=== PATIENT | female | born 1965 | race Caucasian/White ===

== ENCOUNTER 2021-02-28 12:06 | Outpatient (REF) | payer OTHER, SELFPAY ==
--- NOTE | ~2021-02-28 | MM_ITS ---
EXAMINATION: MM SCREENING DIGITAL BREAST TOMOSYNTHESIS, BILATERAL CLINICAL INFORMATION: Screening. Asymptomatic. The lifetime risk of breast cancer based on the Tyrer-Cuzick Model is 9%. COMPARISON: Outside mammography: 12/13/2019, 07/22/2018, 07/15/2018, 06/06/2014 ([facility]). TECHNIQUE: Digital mammography is performed in craniocaudal and mediolateral oblique views along with computer-aided detection (CAD). Digital breast tomosynthesis is performed in implant-displaced craniocaudal and implant-displaced mediolateral oblique views along with computer-aided detection (CAD). Synthesized 2D images are generated from the tomosynthesis. FINDINGS: The breasts are heterogeneously dense, which may obscure small masses (ACR BI-RADS breast composition Category c). There are bilateral implants. The implant contours are smooth and similar to outside exams. Breast parenchymal pattern is similar to prior studies there is a biopsy clip marker adjacent to stable nodule central 11:30 o'clock right breast. Neither breast shows interval mass or architectural abnormality. No abnormal calcifications. The axilla and skin contours are unremarkable. MM/MM tomosynthesis screen imp BI IMPRESSION: No mammographic evidence of malignancy. ASSESSMENT: BI-RADS 2: Benign RECOMMENDATION: Routine annual mammography screening. This patient's information was entered into a reminder system with a target due date for their next mammogram.
== END 2021-02-28 12:07 | disposition home or self-care (01) ==
LOC: HO.MAMMO 12:06
PROVIDERS: Visit Provider Internal Medicine
DX: Z12.31 Encounter for screening mammogram for malignant neoplasm of breast (principal)
CPT/HCPCS: 77063; 77067

== ENCOUNTER 2024-03-20 16:08 | Outpatient (REF) | payer OTHER, SELFPAY ==
[2024-03-20 18:10] LABS: MANUAL DIFF FLAG NO
[2024-03-20 18:30] LABS: Basophils Percent Auto 0.4 % (0-2); Eosinophils Absolute Auto 0.2 X10*3/uL (0.0-0.4); Eosinophils Percent Auto 1.8 % (0-4); Hematocrit 41.5 % (37.0-47.0); Hemoglobin 13.8 g/dl (12.0-16.0); Imm Gran Abs Auto 0.03 X10*3/uL (0.00-0.03); Imm Gran Pct Auto 0.3 % (0.0-0.4); Lymphocytes Absolute Auto 3.2 X10*3/uL (1.2-4.9); Lymphocytes Percent Auto 35.9 % (20-40); Mean Corpuscular HGB Conc 33.3 g/dl (31.0-35.0); Mean Corpuscular Hemoglobin 30.8 pg (27.0-33.0); Mean Corpuscular Volume 92.6 fL (80.0-98.0); Mean Platelet Volume 10.2 fL (9.4-12.3); Monocytes Absolute Auto 0.5 X10*3/uL (0.1-1.2); Neutrophils Percent Auto 55.6 % (45-73); Platelet Count 339 X10*3/uL (160-400); Red Blood Count 4.48 X10*6/uL (4.20-5.50); Red Cell Distribution Width 12.2 % (11.0-16.0)
[2024-03-20 18:54] LABS: Alanine Aminotransferase 28 U/L (0-31); Albumin Level 4.4 g/dL (3.5-5.0); Alkaline Phosphatase 69 U/L (39-117); Anion Gap 12 (12-20); Aspartate Amino Transferase 20 U/L (5-31); Bilirubin Total 0.5 mg/dL (0.0-1.0); Blood Urea Nitrogen 20 mg/dL (9-16); Calcium 9.7 mg/dL (8.4-10.2); Carbon Dioxide 27 mmol/L (22-29); Chloride 107 mmol/L (96-108); Estimated Glomerular Filt Rate > 60; Glucose Random 87 mg/dL (60-115); Potassium 4.6 mmol/L (3.3-5.1); Sodium 141 mmol/L (135-145); Total Protein 7.3 g/dL (6.5-8.0)
[2024-03-20 19:10] LABS: TSH reflex Free T4 1.49 uIU/mL (0.32-4.0)
[2024-03-21 08:05] LABS: HIV AB/AG Nonreactive (Nonreactive); HIV Num 1 0.05 S/CO (0.00-0.99); ~HepC Num1 0.08 S/CO (0.00-0.79); ~Hepatitis C Antibody Nonreactive (Nonreactive)
== END 2024-03-20 16:09 | disposition home or self-care (01) ==
LOC: HO.CHCLDS 16:08
PROVIDERS: Visit Provider Internal Medicine
DX: Z00.00 Encounter for general adult medical examination without abnormal findings (principal)
CPT/HCPCS: 36415; 80053; 84443; 85025; 86803; 87389

== ENCOUNTER 2024-03-21 14:34 | Outpatient (REF) | payer OTHER, SELFPAY ==
[2024-03-23 15:22] LABS: HPV mRNA E6/E7 Not Detected (Not Detected)
[2024-03-28 11:56] LABS: C. trachomatis RNA TMA NOT DETECTED
[2024-03-28 11:57] LABS: N. gonorrhoeae RNA TMA NOT DETECTED; Trichomonas (NAAT) NOT DETECTED
== END 2024-03-21 14:35 | disposition home or self-care (01) ==
LOC: HO.CHCLNP 14:34
PROVIDERS: Visit Provider Family Medicine
DX: Z12.4 Encounter for screening for malignant neoplasm of cervix (principal)
CPT/HCPCS: 36415; 87491; 87591; 87624; 87661; 88175

== ENCOUNTER 2025-05-17 11:31 | Outpatient (REF) | payer MEDICAID, SELFPAY ==
--- OUTSIDE RECORDS SUMMARY | 2025-05-17 10:45 | XMS_ITS | Encounter Summary ---
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 Role Phone Christophe Roldan MD Primary Care Provider [phone] Reason for Referral * Consultation (Routine) - Pending Review Specialty Diagnoses / Procedures Referred By John moon Referred To Contact Dermatology Diagnoses Multiple atypical skin moles Christophe Roldan MD [address] [place] [address] Phone: tel: fax: Chris Welch [address] [place] [phone] Phone: tel: fax: Referral ID Status Reason Start Date Expiration Date Visits Requested Visits Authorized [id number] Pending Review Specialty Services Required 05/17/2026 1 1 * Consultation (Routine) - Pending Review Specialty Diagnoses / Procedures Referred By Contmichelle t Referred To Contact General Surgery Diagnoses Other hemorrhoids Rectal bleed Christophe Roldan MD [address] [place] [address] Phone: tel: fax: Referral ID Status Reason Start Date Expiration Date Visits Requested Visits Authorized [id number] Pending Review Specialty Services Required 05/17/2026 1 1 * Imaging (Routine) - Authorized Specialty Diagnoses / Procedures Referred By John t Referred To Contact Radiology Diagnoses Encounter for screening mammogram for malignant neoplasm of breast Procedures BI Mammogram Screening Tomosynthesis Bilateral Christophe Roldan MD [address] [place] [address] Phone: tel: fax: [facility] Referral ID Status Reason Start Date Expiration Date V isits Requested Visits Authorized [id number] Authorized 05/17/2025 05/17/2026 1 1 Reason for Visit * Reason Comments Annual Exam Encounter Details Date Type Department Care Team ([facility] Contact Info) Description 05/17/2025 10:45 AM EST Office Visit [facility] [address] [place] [address] Christophe Roldan MD [address] [place] [address] Annual physical exam (Primary Dx); Moderate episode of recurrent major depressive disorder (CMS/HCC) (HCC); LOBO (generalized anxiety disorder); Encounter for screening mammogram for malignant neoplasm of breast; Dietary counseling; Exercise counseling; Overweight (BMI 25.0-29.9); Other hemorrhoids; Rectal bleed; Blurry vision, bilateral; Multiple atypical skin moles Social History Tobacco Use Types Packs/Day Years Used Date Smoking Tobacco: Former Cigarettes Smokeless Tobacco: Current Tobacco Cessation:Ready to Q uit: Not Asked; Counseling Given: Not Answered Comments:Vape once in while ( 4 times a week ) Alcohol Use Standard Drinks/Week Comments Yes 0 (1 standard drink = 0.6 oz pur e alcohol) Social Depression Answer Date Recorded Patient Health Questionnaire-9 Score 16 05/17/2025 Patient Health Questionnaire-9 Score 16 05/17/2025 Last PHQ-9: Questionnaire Data Not on file 1 07/17/2024 Housing Stability Answer Date Recorded What is your housing situation today? I have shayan anaya 05/17/[address] you li ve. Do you have problems with any of the following? None of the above 05/17/2025 Food Insecurity Answer Date Recorded Within the past 12 months, y ou worried that your food would run out before you got money to buy more: Sometimes True 2024 Within the past 12 months,th e food you bought just didn't last and you didn't have enough money to get more: Sometimes True 05/17/2025 Transportation Answer Date Recorded In the past 12 months, has l ack of transportation kept you from medical appts, meetings, work or from getting things needed for daily living? No 05/17/2025 Utilities Answer Date Recorded In the past 12 months, has t he electric, gas, oil or water company threatened to shut off services in your home? No 05/17/2025 Depression Answer Date Recorded Patient Health Questionnaire-2 Score 4 05/17/2025 Internet Access Answer Date Recorded Internet Access Q1 Yes 05/17/2025 Internet Access Q2 Not on file 05/17/2025 Comments No Sex and Gender Information Value Date Recorded Sex Assigned at Female 04/27/2022 10:26 AM EDT Legal Sex Female 10:26 AM EDT Gender Identity Female 04/27/2022 10:26 AM EDT Sexual Orientation Straight 04/27/2022 10 :26 AM EDT documented as of this encounter Last Filed Vital Signs Vital Sign Reading Time Taken Comments Blood Pressure 106/63 05/17/2025 10:48 AM EST Pulse 74 05/17/2025 10:48 AM EST Temperature 36.8 C (98.2 F) 05/17/2025 10:48 AM EST Respiratory Rate 20 05/17/2025 10:48 AM EST Oxygen Saturation 97% 05/17/2025 10:48 AM EST Inhaled Oxygen Concentration - - Weight 77.6 kg (171 lb) 05/17/2025 10:48 AM EST Height 164 cm (5' 4.57 ) 05/17/2025 10:48 AM EST Body Mass Index 28.84 05/17/2025 10:48 AM EST documented in this encounter Functional Status * Over the past 2 weeks, how often have you been bothered by any of the following problems? Question Answer Date of Assessment Author Patient Health Questionnaire-2 Score 4 04/29 11:16 AM EST Devora Ramos MA * Little interest or pleasure in doing things Answer Date of Assessment Author More than half the days 05/17/2025 11:16 AM Devora Massey MA * Feeling down, depressed, or hopeless Answer Date of Assessment Author More than half the days 05/17/2025 11:16 AM Devora Massey MA * Trouble falling or staying asleep, or sleeping too much Answer Date of Assessment Author More than half the days 05/17/2025 11:16 AM Devora Massey MA * Feeling tired or having little energy Answer Date of Assessment Author More than half the days 05/17/2025 11:16 AM Devora Massey MA * Poor appetite or overeating Answer Date of Assessment Author More than half the days 05/17/2025 11:16 AM Devora Massey MA * Feeling bad about yourself - or that you are a failure or have let yourself or your family down Answer Date of Assessment Author More than half the days 05/17/2025 11:16 AM Devora Massey MA * Trouble concentrating on things, such as reading the newspaper or watching television Answer Date of Assessment Author More than half the days 05/17/2025 11:16 AM Devora Massey MA * Moving or speaking so slowly that other people could have noticed? Or the opposite - being so fidgety or restless that you have been moving around a lot more than usual. Answer Date of Assessment Author More than half the days 05/17/2025 11:16 AM Devora Massey MA * Thoughts that you would be better off or hurting yourself in some way Answer Date of Assessment Author Not at all 05/17/2025 11:16 AM Petra Massey MA * Patient Health Questionnaire-9 Score Answer Date of Assessment Author 16 05/17/2025 11:16 AM Petra Massey MA * How difficult have these problems made it for you to do your work, take care of things at home, or get along with other people? Answer Date of Assessment Author Somewhat difficult 05/17/2025 11:16 AM Devora Massey MA documented as of this encounter Progress Notes * Christophe Roldan MD - 05/17/2025 10:45 AM EST RACHEAL Hoffmann Cuauhtemoc is a 59 y.o. female who presents for Annual Exam. Tahira Posadas, 59-year-old female - History of severe anxiety and depression, ongoing for years, with persistent symptoms including tense shoulders, back and neck pain, and fear during driving and shopping - Previous prescription for depression and anxiety medication, not taken due to personal reluctance - Weekly phone therapy sessions, reported as ineffective - Recent worsening of anxiety symptoms, including inability to drive with and avoidance of stores due to fear - Hemorrhoidectomy approximately 15 years ago, followed by recurrence and banding procedure; ongoing episodes of significant rectal bleeding, most recently on May 13, 2025, with prolonged bleeding after bowel movements - Uses hemorrhoid ointment and physical measures to control bleeding - Denies constipation - Last eye exam 5-6 years ago, currently experiencing blurry vision - History of multiple atypical skin moles - History of iron deficiency anemia and vitamin D deficiency - History of recurrent fungal ear infections, self-managed with alcohol and white vinegar, no recent episodes Problem List[1] Allergies[2] Medications Ordered Prior to Encounter[3] Review of Systems Constitutional: Negative for activity change, appetite change, chills and diaphoresis. HENT: Negative for dental problem, drooling, ear discharge, ear pain and hearing loss. Eyes: Negative for pain, discharge and itching. Respiratory: Negative for cough, choking and chest tightness. Cardiovascular: Negative for chest pain and leg swelling. Gastrointestinal: Positive for blood in stool. Negative for diarrhea. Genitourinary: Negative for difficulty urinating, dyspareunia, dysuria, enuresis, flank pain, frequency and genital sores. Musculoskeletal: Negative for arthralgias, gait problem and joint swelling. Skin: Negative for pallor. Neurological: Negative for dizziness, seizures, speech difficulty, light- headedness and numbness. Psychiatric/Behavioral: Negative for behavioral problems, confusion and decreased concentration. OBJECTIVE Vitals: 05/17/25 1048 BP: 106/63 BP Location: Left arm Patient Position: Sitting BP Cuff Size: Adult Pulse: 74 Resp: 20 Temp: 98.2 ??F (36.8 ??C) TempSrc: Oral SpO2: 97% Weight: 171 lb (77.6 kg) Height: 5' 4.57 (1.64 m) Physical Exam Constitutional: General: She is not in acute distress. Appearance: Normal appearance. She is not ill-appearing, toxic-appearing or diaphoretic. HENT: Head: Normocephalic. Right Ear: Tympanic membrane normal. There is no impacted cerumen. Left Ear: Tympanic membrane normal. There is no impacted cerumen. Nose: No congestion or rhinorrhea. Cardiovascular: Rate and Rhythm: Normal rate. Pulmonary: Effort: Pulmonary effort is normal. Abdominal: Palpations: Abdomen is soft. Musculoskeletal: Cervical back: Normal range of motion. Skin: General: Skin is warm. Neurological: General: No focal deficit present. Mental Status: She is alert. Psychiatric: Mood and Affect: Mood normal. Assessment/Plan Assessment/Plan Diagnoses and all orders for this visit: Annual physical exam - CBC auto differential; Future - Comprehensive Metabolic Panel; Future - Lipid Panel, Standard; Future - TSH with Reflex to Free T4; Future Moderate episode of recurrent major depressive disorder (CMS/HCC) ([facility]) - sertraline (Zoloft) 25 MG tablet; Take 1 tablet (25 mg) by mouth Once per day. LOBO (generalized anxiety disorder) - sertraline (Zoloft) 25 MG tablet; Take 1 tablet (25 mg) by mouth Once per day. Encounter for screening mammogram for malignant neoplasm of breast - BI Mammogram Screening Tomosynthesis Bilateral; Future Dietary counseling Exercise counseling Overweight (BMI 25.0-29.9) - Comprehensive Metabolic Panel; Future - Lipid Panel, Standard; Future - TSH with Reflex to Free T4; Future Other hemorrhoids - CBC auto differential; Future - Referral to General Surgery; Future Rectal bleed - Referral to General Surgery; Future Blurry vision, bilateral Multiple atypical skin moles - Referral to Dermatology; Future Moderate episode of recurrent major depressive disorder (CMS/HCC) ([facility]): - Moderate recurrent major depressive disorder with persistent symptoms despite prior therapy and counseling. - Prescribed sertraline (Zoloft), an SSRI, as first-line pharmacologic treatment. Recommended follow-up in 4 weeks to assess response and consider dose adjustment or alternative therapy if no improvement. - Risks and side effects: Discussed low risk of suicidal ideation and generally minimal side effects with sertraline. Patient informed of potential side effects and advised to be patient as medication may take 2-3 weeks to show effect. LOBO (generalized anxiety disorder): - Generalized anxiety disorder with chronic symptoms impacting daily activities and quality of life. - Initiated sertraline (Zoloft) for anxiety management. Advised to monitor symptoms and follow up in 4 weeks for reassessment. Offered psychotherapy referral; patient opted to try medication first before considering additional therapy. - Risks and side effects: Discussed low risk of suicidal ideation and generally minimal side effects with sertraline. Encounter for screening mammogram for malignant neoplasm of breast: - Ordered screening mammogram for breast cancer. Other hemorrhoids: - Recurrent hemorrhoids with significant bleeding following bowel movements, status post hemorrhoidectomy and banding. - Referred to general surgery at [facility] for further evaluation and management. Rectal bleed: - Rectal bleeding associated with hemorrhoids, with episodes of significant blood loss. - Ordered CBC to assess for anemia and further evaluate extent of blood loss. Blurry vision, bilateral: - Bilateral blurry vision, not evaluated in past 5-6 years. - Referred to vision center for comprehensive eye examination. Multiple atypical skin moles: - Multiple atypical skin moles requiring surveillance. - Referred to surveillance sensor operator (Lali Welch) for complete skin examination. This note was drafted using Ambient (AI) technology. The patient/patient's guardian has been informed and has consented to the use of this technology: Yes [1] Patient Active Problem List Diagnosis Iron deficiency anemia Multiple atypical skin moles Vitamin D deficiency Moderate episode of recurrent major depressive disorder (CMS/HCC) (HCC) LOBO (generalized anxiety disorder) Hemorrhoids Cervical cancer screening [2] No Known Allergies [3] No current outpatient medications on file prior to visit. No current facility-administered medications on file prior to visit. documented in this encounter Plan of Treatment Upcoming Encounters Date Type Department Care Team (Late st Contact Info) Description 06/14/2025 11:30 AM EST Office Visit [facility] MED & PEDS [address] [place] [address] Christophe Roldan MD [address] [place] [address] Scheduled Orders Name Type Priority Associated Diagnoses Orde r Schedule BI Mammogram Screening Tomosynthesis Bilateral Imaging Routine Encounter for screening mammogram for malignant neoplasm of breast Expected: 05/17/2025, Expires: 07/17/2026 Scheduled Referrals Name Type Priority Associated Diagnoses Order Schedule Referral to General Surgery Outpatient Referral Routine Other hemorrhoids Rectal bleed Expected: 05/17/2025 (Approximate), Expires: 05/17/2026 Referral to Dermatology Outpatient Referral Routine Multiple atypical skin moles Expected: 05/17/2025 (Approximate), Expires: 05/17/2026 documented as of this encounter Procedures Procedure Name Priority Date/Time Associated Diagnosis Comments CBC WITH AUTO DIFFERENTIAL Routine 05/17/2025 1:27 PM EST Annual physical exam Other hemorrhoids TSH W/REFLEX TO FT4 Routine 05/17/2025 1 1:35 AM EST Annual physical exam Overweight (BMI 25.0-29.9) LIPID PANEL, STANDARD Routine 05/17/2025 11:35 AM EST Annual physical exam Overweight (BMI 25.0-29.9) COMPREHENSIVE METABOLIC PANEL Routine 05/17/2025 11:35 AM EST Annual physical exam Overweight (BMI 25.0-29.9) documented in this encounter Results * (ABNORMAL) CBC auto differential (05/17/2025 1:27 PM EST) White Blood Count 6.2 4.8 - 10.8 X10*3/uL [facility] Red Blood Count 4.57 4.20 - 5.50 X10*6/uL [facility] Hemoglobin 13.6 12.0 - 16.0 g/dl [facility] Hematocrit 41.7 37.0 - 47.0 % [facility] Mean Corpuscular Volume 91.2 80.0 - 98.0 fL [facility] Mean Corpuscular Hemoglobin 29.8 27.0 - 33.0 pg [facility] Mean Corpuscular HGB Conc 32.6 31.0 - 35.0 g/dl [facility] Red Cell Distribution Width 12.4 11.0 - 16.0 % [facility] Platelet Count 351 160 - 400 X10*3/uL [facility] Mean Platelet Volume 10.2 9.4 - 12.3 fL [facility] Neutrophils Percent Auto 52.1 45 - 73 % [facility] Imm Gran Pct Auto 0.3 0.0 - 0.4 % [facility] Lymphocytes Percent Auto 40.1(H) 20 - 40 % [facility] Monocytes Percent Auto 5.9 2 - 11 % [facility] Eosinophils Percent Auto 1.3 0 - 4 % [facility] Basophils Percent Auto 0.3 0 - 2 % [facility] NRBC Pct Auto 0.0 0.0 - 0.2 /100WBC [facility] Neutrophils Absolute Auto 3.3 2.0 - 8.3 x10*3/uL [facility] Imm Gran Abs Auto 0.02 0.00 - 0.03 X10*3/uL [facility] Lymphocytes Absolute Auto 2.5 1.2 - 4.9 X10*3/uL [facility] Monocytes Absolute Auto 0.4 0.1 - 1.2 X10*3/uL [facility] Eosinophils Absolute Auto 0.1 0.0 - 0.4 X10*3/uL [facility] Basophils Absolute Auto 0.0 0.0 - 0.2 X10*3/uL [facility] NRBC Abs Auto 0.000 0.0 - 0.012 X10*3/uL [facility] Blood Venous blood specimen / Unknown 05/17/2025 1:27 PM EST 05/17/2025 2:06 PM EST us Christophe Roldan MD LAB BLOOD ORDERABLES Final Result [facility] [address] [place] [address] [phone] * TSH with Reflex to Free T4 (05/17/2025 11:35 AM EST) TSH reflex Free T4 1.46 0.32 - 4.0 uIU/mL [facility] Blood Venous blood specimen / Unknown 05/17/2025 11:35 AM EST 05/17/2025 2:02 PM EST us Christophe Roldan MD LAB BLOOD ORDERABLES Final Result Performing Organization Address [facility] Co de Phone Number [facility] [address] [place] [address] [phone] * (ABNORMAL) Lipid Panel, Standard (05/17/2025 11:35 AM EST) Triglycerides 75 <150 mg/dL [facility] Comment:Desirable Triglyceri de: less than 150 mg/dLBorderline High Triglyceride 150-199 mg/dLHigh Triglyceride: 200-499 mg/dLVery High Triglyceride: greater than or equal to 5OO mg/dL Cholesterol 238(H) <200 mg/dL [facility] Comment:Desirable Cholestero l: less than 200 mg/dLBorderline High Cholesterol: 200-239 mg/dLHigh Cholesterol: greater than 239 mg/dL LDL Cholesterol Calculated 153(H) <100 mg/dL [facility] Comment:Desirable LDL: less than 100 mg/dLNear Optimal/Above Optimal LDL: 110- 129 mg/dLBorderline High LDL: 130-159 mg/dLHigh LDL: 160-189 mg/dLVery High LDL: greater than or equal to 190 mg/dL HDL Cholesterol 70 >40 mg/dL [facility] Comment:Desirable HDL: great er than 40 mg/dL Note: This HDL assay may give artificially low results in patients with liver disease. Blood Venous blood specimen / Unknown 05/17/2025 11:35 AM EST 05/17/2025 2:02 PM EST us Christophe Roldan MD LAB BLOOD ORDERABLES Final Result Performing Organization Address City/[facility]/ZIP Co de Phone Number [facility] [address] [place] [address] [phone] * (ABNORMAL) Comprehensive Metabolic Panel (05/17/2025 11:35 AM EST) Sodium 143 135 - 145 mmol/L [facility] Potassium 4.0 3.3 - 5.1 mmol/L [facility] Chloride 108 96 - 108 mmol/L [facility] Carbon Dioxide 27 22 - 29 mmol/L [facility] Anion Gap 12 12 - 20 [facility] Urea Nitrogen (BUN) 19(H) 9 - 16 mg/dL [facility] Creatinine, Serum 0.79 0.5 - 1.4 mg/dL [facility] Estimated Glomerular Filt Rate >60 [facility] Comment:Chronic Kidney Disea se: Estimated GFR < 60 mL/min/1.07p5[place]ah Kidney Disease: Estimated GFR < 15 mL/min/1.73m2 Glucose 84 60 - 115 mg/dL [facility] Calcium 9.3 8.4 - 10.2 mg/dL [facility] Bilirubin, Total 0.5 0.0 - 1.0 mg/dL [facility] Aspartate Amino Transferase 23 5 - 31 U/L [facility] Alanine Aminotransferase 29 0 - 31 U/L [facility] Total Protein 7.0 6.5 - 8.0 g/dL [facility] Albumin Level 4.6 3.5 - 5.0 g/dL [facility] Alkaline Phosphatase 69 39 - 117 U/L [facility] Blood Venous blood specimen / Unknown 05/17/2025 11:35 AM EST 05/17/2025 2:02 PM EST us Christophe Roldan MD LAB BLOOD ORDERABLES Final Result [facility] [address], [place] [phone] documented in this encounter Visit Diagnoses Diagnosis Annual physical exam- Primary Routine general medical examination at a health care facility Moderate episode of recurrent major depressive disorder (CMS/HCC) (HCC) LOBO (generalized anxiety disorder) Generalized anxiety disorder Encounter for screening mammogram for malignant neoplasm of breast Dietary counseling Dietary surveillance and counseling Exercise counseling Overweight (BMI 25.0-29.9) Overweight Other hemorrhoids Rectal bleed Hemorrhage of rectum and anus Blurry vision, bilateral Other specified visual disturbances Multiple atypical skin moles documented in this encounter Additional Health Concerns Assessment Noted Time PHQ-9 Depression Total Score: 16 05/17/ 025 11:16 AM EST documented as of this encounter Care Teams Wheel Truing Machine Tender Relationship Specialty Start Date End Date Christophe Roldan MD [address] [place] [phone] PCP - General Internal Medicine 10/02/20 documented as of this encounter
[2025-05-17 14:10] LABS: MANUAL DIFF FLAG NO
[2025-05-17 14:15] LABS: Hematocrit 41.7 % (37.0-47.0); Hemoglobin 13.6 g/dl (12.0-16.0); Imm Gran Abs Auto 0.02 X10*3/uL (0.00-0.03); Imm Gran Pct Auto 0.3 % (0.0-0.4); Lymphocytes Absolute Auto 2.5 X10*3/uL (1.2-4.9); Mean Corpuscular HGB Conc 32.6 g/dl (31.0-35.0); Mean Corpuscular Hemoglobin 29.8 pg (27.0-33.0); Mean Corpuscular Volume 91.2 fL (80.0-98.0); NRBC Abs Auto 0.000 X10*3/uL (0.0-0.012); NRBC Pct Auto 0.0 /100WBC (0.0-0.2); Platelet Count 351 X10*3/uL (160-400); Red Blood Count 4.57 X10*6/uL (4.20-5.50); White Blood Count 6.2 X10*3/uL (4.8-10.8)
[2025-05-17 14:42] LABS: Alanine Aminotransferase 29 U/L (0-31); Albumin Level 4.6 g/dL (3.5-5.0); Alkaline Phosphatase 69 U/L (39-117); Anion Gap 12 (12-20); Aspartate Amino Transferase 23 U/L (5-31); Blood Urea Nitrogen 19 mg/dL (9-16); Calcium 9.3 mg/dL (8.4-10.2); Carbon Dioxide 27 mmol/L (22-29); Chloride 108 mmol/L (96-108); Cholesterol 238 mg/dL (<200); Estimated Glomerular Filt Rate > 60; HDL Cholesterol 70 mg/dL (>40); Potassium 4.0 mmol/L (3.3-5.1); Sodium 143 mmol/L (135-145); Total Protein 7.0 g/dL (6.5-8.0); Triglycerides 75 mg/dL (<150)
--- OUTSIDE RECORDS SUMMARY | 2025-05-17 17:51 | XMS_ITS | Encounter Summary ---
Author Organization [employer] Address [address] [facility] [address] [place] [address] Care Team Providers Care Cook Cold Meat Name Role Phone Christophe Roldan MD Primary Care Provider [phone] Encounter Details Date Type Department Care Team ([facility] st Contact Info) Description 03/22/2024 Orders Only [facility] [address] [place] [address] ProviderStephanie MD Social History Tobacco Use Types Packs/Day Years Used Date Smoking Tobacco: Former Cigarettes Smokeless Tobacco: Current Alcohol Use Standard Drinks/Week Comments Yes 0 (1 standard drink = 0.6 oz pur e alcohol) Social Depression Answer Date Recorded Patient Health Questionnaire-9 Score 15 03/20/2024 Patient Health Questionnaire-9 Score 15 03/20/2024 Last PHQ-9: Questionnaire Data Not on file 0 03/20/2024 Housing Stability Answer Date Recorded What is your housing situation today? I have shayanfunmi anaya 03/13/[address] you li ve. Do you have problems with any of the following? None of the above 03/13/2024 Food Insecurity Answer Date Recorded Within the past 12 months, y ou worried that your food would run out before you got money to buy more: Never True 03/13/2024 Within the past 12 months,th e food you bought just didn't last and you didn't have enough money to get more: Never True Transportation Answer Date Recorded In the past 12 months, has l ack of transportation kept you from medical appts, meetings, work or from getting things needed for daily living? No 03/13/2024 Utilities Answer Date Recorded In the past 12 months, has t he [employer], gas, oil or water [employer] threatened to shut off services in your home? No 03/13/2024 Depression Answer Date Recorded Patient Health Questionnaire-2 Score 5 03/20/2024 Internet Access Answer Date Recorded Internet Access Q1 Yes 03/13/2024 Internet Access Q2 Not on file 03/13/2024 Comments No Sex and Gender Information Value Date Recorded Sex Assigned at Female 04/27/2022 10:26 AM EDT Legal Sex Female 10:26 AM EDT Gender Identity Female 04/27/2022 10:26 AM EDT Sexual Orientation Straight 04/27/2022 10 :26 AM EDT documented as of this encounter Plan of Treatment Upcoming Encounters Date Type Department Care Team ([facility] st Contact Info) Description 06/14/2025 11:30 AM EST Office Visit [facility] [address] [place], [place] [id number] Christophe Roldan MD [address] [place] [address] documented as of this encounter Procedures Procedure Name Priority Date/Time Associated Diagnosis Comments THINPREP IMAGING PAP AND HPV MRNA E6/E7 Routine 03/21/2024 12:00 AM EDT HM COLONOSCOPY Routine 11/16/2022 3:11 PM EDT documented in this encounter Results * ThinPrep Imaging Pap and HPV mRNA E6/E7 (03/21/2024 12:00 AM EDT) HPV nRNA E6/E7 Not Detected Not Detected [facility] Comment:Methodology: Transcr iption-Mediated AmplificationThis assay detects E6/E7 viral messenger RNA (mRNA) from 14high-risk HPV types (16,18,31,33,35,39,45,51,52,56,58,59,66,68).Cervical sources are required for HPV testing.If a vaginal source from a patient who has had atotal hysterectomy with removal of cervix wassubmitted, please contact the testing laboratoryfor alternative testing options.For additional information, please refer [email or web address].[employer]/faq/AYF514t2(This link if provided for information/educational purposes only.)THIS TEST WAS PERFORMED AT:[facility] [address] [id number] MARIA RESENDIZ MD SOURCE: SEE NOTE [facility] Comment:None given Report Status: [facility] Clinical Information: SEE NOTE [facility] Comment:None given LMP: SEE NOTE [facility] Comment:NONE GIVEN Prev. PAP: SEE NOTE [facility] Comment:NONE GIVEN Prev. BX: SEE NOTE [facility] Comment:NONE GIVEN Statement Of Adequacy: SEE NOTE [facility] Comment:SATISFA[employer]ORY FOR [employer] General Categorization: [facility] Interpretation/Result: SEE NOTE [facility] Comment:Cytology Results: Ne gative for intraepitheliallesion or malignancy.Atrophic pattern; predominantly parabasal cells Cytology Comment SEE NOTE [facility] Comment:This Pap test has be en evaluated with computerassisted technology. Medical Imaging Director: SEE NOTE [facility] Comment:MRC, CT(ASCP) CT scr eening location: [address] [address] Review Medical Imaging Director: [facility] Pathologist [facility] PAP Infection [facility] See Note SEE NOTE [facility] Comment:EXPLANATORY NOTE:The Pap is a screening test for cervical cancer. It isnot a diagnostic test and is subject to false negativeand false positive results. It is most reliable when asatisfactory sample, regularly obtained, is submittedwith relevant clinical findings and history, and whenthe Pap result is evaluated along with historic andcurrent clinical information. 03/21/2024 03/21/2024 Narrative [facility] - 03/28/2024 11:56 AM EDT SEE SCANNED RESULTS IN EMR us Raisa Ledezma MD LAB PATHOLOGY ORDERABLES Bridget manzo Result [facility] [address] [place] [address] [phone] * Hm Colonoscopy (11/16/2022 3:11 PM EDT) us Historical Provider HEALTH MAINTENANCE Final Result documented in this encounter Visit Diagnoses Not on filedocumented in this encounter Additional Health Concerns Assessment Noted Time PHQ-9 Depression Total Score: 15 024 3:49 PM EDT documented as of this encounter Care Teams Cook Cold Meat Relationship Specialty Start Date End Date Christophe Roldan MD [address] [place] [phone] PCP - General Internal Medicine 10/02/20 documented as of this encounter
--- OUTSIDE RECORDS SUMMARY | 2025-05-17 17:51 | XMS_ITS | Encounter Summary ---
Author Organization [employer] Address [address] [place] [address] Care Team Providers Care Java Web Developer Name Role Phone Christophe Roldan MD Primary Care Provider [phone] Reason for Visit * Reason Comments Care Coordination CHW outreach for SDO H food & housing search-referral completed Encounter Details Date Type Department Care Team (Latest Contact Info) Description 05/17/2025 Patient Outreach [facility] [address] [place] [address] Christophe Roldan MD [address] [place] [phone] Care Coordination ([facility] outreach for SDOH food & housing search-referral completed ) Social History Tobacco Use Types Packs/Day Years Used Date Smoking Tobacco: Former Cigarettes Smokeless Tobacco: Current Comments:Vape once in while ( 4 times [...] AM EDT documented as of this encounter Functional Status * Over the past 2 weeks, how often have you been bothered by any of the following problems? Question Answer Date of Assessment Author Patient Health Questionnaire-2 Score 4 04/29 11:16 AM Devora Massey MA * Little interest or pleasure in doing things Answer Date of Assessment Author More than half the days 05/17/2025 11:16 AM Devroa Massey MA * Feeling down, depressed, or [...] as of this encounter Progress Notes * Brent Martel - 05/17/2025 12:48 PM EST CHW Brent Martel, placed outbound call to patient for assistance with SDOH as a referral was received by the provider. Patient's name and were confirmed. Patient screened positive for the following SDOH housing insecurities. Patient states is staying with her friend but is searching for her own apartment. CHW referral patient to the list of application mail out to her address on file. Patient verbalizes understanding, and able to agree with plan to follow up herself. Patient educated on extended clinic hours on Mondays through Wednesdays, and Walk-In Urgent Care Located in [facility]. Patient provided with after-hours line for [facility], , which offer night time triage service and option to transfer to lobby concierge provider if needed. documented in this encounter Plan of Treatment Upcoming Encounters Date Type Department Care Team (Late st Contact Info) Description 06/14/2025 11:30 AM EST Office Visit [facility] [address] [place] [address] Christophe Roldan MD [address] [place] [address] documented as of this encounter Visit Diagnoses Not on filedocumented in this encounter Additional Health Concerns Assessment Noted Time PHQ-9 Depression Total Score: 16 025 11:16 AM EST documented as of this encounter Care Teams Java Web Developer Relationship Specialty Start Date End Date Christophe Roldan MD [address] [place] [address] PCP - General Internal Medicine 10/02/20 documented as of this encounter
--- OUTSIDE RECORDS SUMMARY | 2025-05-17 17:51 | XMS_ITS | Clinical Summary ---
Author Organization [employer] Address [address] [place] [address] 7 [place] [address] Care Team Providers Care Carton Stamper Name Role Phone Christophe Roldan MD Primary Care Provider [phone] Allergies No known active allergies Medications * This document contains information received from the source organization and may not represent a complete record from that organization. sertraline (Zoloft) 25 MG tabletIndication s:Moderate episode of recurrent major depressive disorder (CMS/HCC) (HCC),LOBO (generalized anxiety disorder) Take 1 tablet (25 mg) by mouth Once per day. 30 tablet 11 05/17/2025 6 Active Active Problems Problem Noted Date Diagnosed Date LOBO (generalized anxiety disorder) 03/21/2024 Hemorrhoids 03/21/2024 Cervical cancer screening 03/21/2024 Assessment & Plan (03/21/2024 11:29 AM EDT): 58 y.o. here for cervical cancer screening. Will continue monitoring following ASCCP guidelines. Iron deficiency anemia 03/20/2024 Multiple atypical skin moles 03/20/2024 Vitamin D deficiency 03/20/2024 Moderate episode of recurren t major depressive disorder (CMS/HCC) 03/20/2024 Assessment & Plan (03/21/2024 9:04 AM EDT): PROGRESS NOTE: ID: Tahira is a 58 y.o. White straight-identified cis-female with previous documented hx of Adjustment Disorder MH services including OP Psychotherapy who presents for Depression and Anxiety During IBH Consult Tahira presenting with depressed mood, crying spells , hopelessness, irritable mood, loss of interests/pleasure , sense of isolation/loneliness , change in appetite or weight reduce appetite, changes in sleep sleeping too much, fatigue/loss of energy, worthlessness, difficulty concentrating and excessive worry/anxiety, difficulty controlling worry, anxiety/worry associated to easily fatigued , difficulty concentrating and/or mind going blank , irritability, muscle tension , and sleep disturbance sleeping too much, Fear , and sense of dread ; for a period of 18+ mo, for most or all symptoms in the context of stress relationship with her daughter in law, strange relationship with children, struggling with children moving out, struggling in finding life purpose. PLAN: (check all that apply) New/Additional Services needed Off-site services for Behavioral Health Integration Plan External OP therapy referral and OP psychiatry Referral Patient Self Plan Patient to utilize skills provided in intervention , Patient to reach out to [facility] team as needed, Comply with medication , Patient to engage in OP therapy , and Patient to reach out to HC as needed Encounters Date Type Department Care Team Description 05/17/2025 10:45 AM EST Office Visit [facility] [address] [place] [address] Christophe Roldan MD Annual physical exam (Primary Dx); Moderate episode of recurrent major depressive disorder (CMS/HCC) (HCC); LOBO (generalized anxiety disorder); Encounter for screening mammogram for malignant neoplasm of breast; Dietary counseling; Exercise counseling; Overweight (BMI 25.0-29.9); Other hemorrhoids; Rectal bleed; Blurry vision, bilateral; Multiple atypical skin moles 05/17/2025 Patient Outreach [facility] [address] [place] [phone] Christophe Roldan MD Care Coordination (CHW outreach for SDWI food & housing search-referral completed ) 05/17/2025 Telephone [facility] [address] [place] [address] Christophe Roldan MD 05/17/2025 Travel 05/10/2025 Patient Outreach [facility] [address] [place] [phone] Christophe Roldan MD Pre-visit Planning (Pre visit planning LVM ) from Last 3 Months Immunizations Immunization Administration Dates Next Due Tdap 03/09/2017 Family History Medical History Relation Name Comments Leukemia Brother Thyroid cancer Brother Melanoma Father Thyroid disease Mother Relation Name Status Comments Brother Father Mother Social History Tobacco Use Types Packs/Day Years [...] Orientation Straight 04/27/2022 10 :26 AM EDT Last Filed Vital Signs Vital Sign Reading [...] Mass Index 28.84 05/17/2025 10:48 AM EST Plan of Treatment Upcoming Encounters Date Type Department Care Team (Late st Contact Info) Description 06/14/2025 11:30 AM EST Office Visit [facility] [address] [place], [place] [phone] Christophe Roldan MD [address] [place], [place] [phone] Health Maintenance Due Date Last Done Comments CT Colonography 1966 FIT DNA/Cologuard 1966 FIT 1966 FOBT 1966 Sigmoidoscopy 1966 Zoster Vaccines (1 of 2) 2016 Mammogram 02/28/2023 02/28/2021 Dental Oral Exam 10/26/2024 04/26/2024, 10/2020, 04/03/2019, Additional history exists Dental Prophylaxis 10/26/2024 04/26/2024, 0 01/22/2022, 05/06/2021, Additional history exists Dental X-Ray: Bitewings 04/27/2025 04/26/20 24, 12/23/2022, 01/22/2022, Additional history exists Lipid Panel 11/07/2025 05/17/2025, 11/07/2020 Depression Monitoring 11/14/2025 05/17/2025, 025 Influenza Vaccine (#1) 2025 Postp oned from 02/26/2025 (Patient Refused) Alcohol/Substance Use Screening 05/17/2026 05/17/2025 COVID-19 Vaccine ( season) 2026 Postponed from 02/26/2025 (Patient Refused) Disability Screening 05/17/2026 05/17/2025 Pneumococcal Vaccine: 50+ Years (1 of 1 - PCV) 05/17/2026 Postponed from 2016 (Patient Refused) SDOH Screening 05/17/2026 05/17/2025 Tobacco Screening 05/17/2026 05/17/2025 DTaP/Tdap/Td Vaccines (2 - Td or Tdap) 03/09/2027 03/09/2017 Pap Smear 03/21/2027 03/21/2024, 09/10/2020 Dental X-Ray: Full Mouth 04/27/2027 024, 04/03/2019, 09/13/2014 Cervical Cancer Screening 03/21/2029 HPV/Cotest 03/21/2029 03/21/2024, 08/26, 09/14/2017 Colonoscopy 11/16/2032 11/16/2022, 10/27, 11/16/2022 Colorectal Cancer Screening 11/16/2032 RSV Patients and Patients Aged 60 years or older (1 - 1-dose 75+ series) 2041 HIV Screening Completed 03/20/2024 Hepatitis C Screening Completed 03/20/2024 HIB Vaccines Aged Out No longer eligi ble based on patient's age to complete this topic HPV Vaccines Aged Out No longer eligi ble based on patient's age to complete this topic Hepatitis A Vaccines Aged Out No long er eligible based on patient's age to complete this topic Hepatitis B Vaccines Discontinued IPV Vaccines Aged Out No longer eligi ble based on patient's age to complete this topic Meningococcal B Vaccine Aged Out No l onger eligible based on patient's age to complete this topic Meningococcal Vaccine Aged Out No rick john eligible based on patient's age to complete this topic RSV under 20 months Aged Out No longe r eligible based on patient's age to complete this topic Rotavirus Vaccines Aged Out No longer eligible based on patient's age to complete this topic Procedures Procedure Name Priority Date/Time Associated Diagnosis [...] EST Annual physical exam Overweight (BMI 25.0-29.9) PROPHYLAXIS - ADULT Routine 04/26/2024 2 :00 PM EDT Defective dental christianity INTRAORAL - COMPLETE SERIES OF RADIOGRAPHIC IMAGES Routine 04/26/2024 2:00 PM EDT Defective dental christianity PERIODIC ORAL EVALUATION - ESTABLISHED PATIENT Routine 04/26/2024 2:00 PM EDT Defective dental christianity THINPREP IMAGING PAP AND HPV MRNA E6/E7 Routine 03/21/2024 12:00 AM EDT HEPATITIS C AB W/REFL TO HCV RNA, QN, PCR Routine 03/20/2024 4:10 PM EDT Annual physical exam HIV 1/2 ANTIGEN/ANTIBODY, FOURTH GENERATION W/RFL Routine 03/20/2024 4:10 PM EDT Annual physical exam COLONOSCOPY Routine 11/16/2022 MAMMOGRAM GENERIC Routine 02/28/2021 12: 00 PM EDT from Last 3 Months or Most Recently Relevant to Health Maintenance Results * (ABNORMAL) CBC auto differential (05/17/2025 1:27 PM EST) White Blood Count 6.2 4.8 - 10.8 X10*3/uL [facility] Red Blood Count 4.57 4.20 - 5.50 X10*6/uL [facility] Hemoglobin 13.6 12.0 - 16.0 g/dl [facility] Hematocrit 41.7 37.0 - 47.0 % [facility] Mean Corpuscular Volume 91.2 80.0 - 98.0 fL [facility] Mean Corpuscular Hemoglobin 29.8 27.0 - 33.0 pg [facility] Mean Corpuscular HGB Conc 32.6 31.0 - 35.0 g/dl [facility] Red Cell Distribution Width 12.4 11.0 - 16.0 % [facility] Platelet Count 351 160 - 400 X10*3/uL [facility] Mean Platelet Volume 10.2 9.4 - 12.3 fL [facility] Neutrophils Percent Auto 52.1 45 - 73 % [facility] Imm Gran Pct Auto 0.3 0.0 - 0.4 % [facility] Lymphocytes Percent Auto 40.1(H) 20 - 40 % [facility] Monocytes Percent Auto 5.9 2 - 11 % [facility] Eosinophils Percent Auto 1.3 0 - 4 % [facility] Basophils Percent Auto 0.3 0 - 2 % [facility] NRBC Pct Auto 0.0 0.0 - 0.2 /100WBC [facility] Neutrophils Absolute Auto 3.3 2.0 - 8.3 x10*3/uL [facility] Imm Gran Abs Auto 0.02 0.00 - 0.03 X10*3/uL [facility] Lymphocytes Absolute Auto 2.5 1.2 - 4.9 X10*3/uL [facility] Monocytes Absolute Auto 0.4 0.1 - 1.2 X10*3/uL [facility] Eosinophils Absolute Auto 0.1 0.0 - 0.4 X10*3/uL [facility] Basophils Absolute Auto 0.0 0.0 - 0.2 X10*3/uL [facility] NRBC Abs Auto 0.000 0.0 - 0.012 X10*3/uL [facility] Blood Venous blood specimen / Unknown 05/17/2025 1:27 PM EST 05/17/2025 2:06 PM EST Christophe Roldan MD LAB BLOOD ORDERABLES Final Result [facility] [address] [place] [phone] * TSH with Reflex to Free T4 (05/17/2025 11:35 AM EST) TSH reflex Free T4 1.46 0.32 - 4.0 uIU/mL [facility] Blood Venous blood specimen / Unknown 05/17/2025 11:35 AM EST 05/17/2025 2:02 PM EST Christophe Roldan MD LAB BLOOD ORDERABLES Final Result Performing Organization Address [facility] Co de Phone Number [facility] [address] [place] [phone] * (ABNORMAL) Lipid Panel, Standard (05/17/2025 11:35 AM EST) Triglycerides 75 <150 mg/dL [facility] Comment:Desirable Triglyceri de: less than 150 mg/dLBorderline High Triglyceride 150-199 mg/dLHigh Triglyceride: 200-499 mg/dLVery High Triglyceride: greater than or equal to 5OO mg/dL Cholesterol 238(H) <200 mg/dL [facility] Comment:Desirable Cholestero l: less than 200 mg/dLBorderline High Cholesterol: 200-239 mg/dLHigh Cholesterol: greater than 239 mg/dL LDL Cholesterol Calculated 153(H) <100 mg/dL [facility] Comment:Desirable LDL: less than 100 mg/dLNear Optimal/Above Optimal LDL: 110- 129 mg/dLBorderline High LDL: 130-159 mg/dLHigh LDL: 160-189 mg/dLVery High LDL: greater than or equal to 190 mg/dL HDL Cholesterol 70 >40 mg/dL [facility] Comment:Desirable HDL: great er than 40 mg/dL Note: This HDL assay may give artificially low results in patients with liver disease. Blood Venous blood specimen / Unknown 05/17/2025 11:35 AM EST 05/17/2025 2:02 PM EST us Christophe Roldan MD LAB BLOOD ORDERABLES Final Result Performing Organization Address City/[facility]/ZIP Co de Phone Number [facility] [address] [place] [address] [phone] * (ABNORMAL) Comprehensive Metabolic Panel (05/17/2025 11:35 AM EST) Sodium 143 135 - 145 mmol/L [facility] Potassium 4.0 3.3 - 5.1 mmol/L [facility] Chloride 108 96 - 108 mmol/L [facility] Carbon Dioxide 27 22 - 29 mmol/L [facility] Anion Gap 12 12 - 20 [facility] Urea Nitrogen (BUN) 19(H) 9 - 16 mg/dL [facility] Creatinine, Serum 0.79 0.5 - 1.4 mg/dL [facility] Estimated Glomerular Filt Rate >60 [facility] Comment:Chronic Kidney Disea se: Estimated GFR < 60 mL/min/1.64o1Rtrebu Kidney Disease: Estimated GFR < 15 mL/min/1.73m2 Glucose 84 60 - 115 mg/dL [facility] Calcium 9.3 8.4 - 10.2 mg/dL [facility] Bilirubin, Total 0.5 0.0 - 1.0 mg/dL [facility] Aspartate Amino Transferase 23 5 - 31 U/L [facility] Alanine Aminotransferase 29 0 - 31 U/L [facility] Total Protein 7.0 6.5 - 8.0 g/dL [facility] Albumin Level 4.6 3.5 - 5.0 g/dL [facility] Alkaline Phosphatase 69 39 - 117 U/L [facility] Blood Venous blood specimen / Unknown 05/17/2025 11:35 AM EST 05/17/2025 2:02 PM EST us Christophe Roldan MD LAB BLOOD ORDERABLES Final Result Performing Organization Address City/[facility]/ZIP Co de Phone Number [facility] [address] [place] [address] [phone] * ThinPrep Imaging Pap and HPV mRNA E6/E7 (03/21/2024 12:00 AM EDT) HPV nRNA E6/E7 Not Detected Not Detected [facility] Comment:Methodology: Transcr iption-Mediated AmplificationThis assay detects E6/E7 viral messenger RNA (mRNA) from 14high-risk HPV types (16,18,31,33,35,39,45,51,52,56,58,59,66,68).Cervical sources are required for HPV testing.If a vaginal source from a patient who has had atotal hysterectomy with removal of cervix wassubmitted, please contact the testing laboratoryfor alternative testing options.For additional information, please refer tohttp://education.HitMeUp/faq/NXP694a9(This link if provided for information/educational purposes only.)THIS TEST WAS PERFORMED AT:[facility] [address] [phone] MARIA RESENDIZ MD SOURCE: SEE NOTE [facility] Comment:None given Report Status: [facility] Clinical Information: SEE NOTE [facility] Comment:None given LMP: SEE NOTE [facility] Comment:NONE GIVEN Prev. PAP: SEE NOTE [facility] Comment:NONE GIVEN Prev. BX: SEE NOTE [facility] Comment:NONE GIVEN Statement Of Adequacy: SEE NOTE [facility] Comment:SATISFACTORY FOR MANDY LUATION General Categorization: [facility] Interpretation/Result: SEE NOTE [facility] Comment:Cytology Results: Ne gative for intraepitheliallesion or malignancy.Atrophic pattern; predominantly parabasal cells Cytology Comment SEE NOTE [facility] Comment:This Pap test has be en evaluated with computerassisted technology. Review Trainer: SEE NOTE [facility] Comment:MRC, CT(ASCP) CT scr eening location: [address] [address] Review Review Trainer: [facility] Pathologist [facility] PAP Infection [facility] See Note SEE NOTE [facility] Comment:EXPLANATORY NOTE:The Pap is a screening test for cervical cancer. It isnot a diagnostic test and is subject to false negativeand false positive results. It is most reliable when asatisfactory sample, regularly obtained, is submittedwith relevant clinical findings and history, and whenthe Pap result is evaluated along with historic andcurrent clinical information. 03/21/2024 03/21/2024 Narrative [facility] - 03/28/2024 11:56 AM EDT SEE SCANNED RESULTS IN EMR us Raisa Ledezma MD LAB PATHOLOGY ORDERABLES Bridget l Result Performing Organization Address [facility]/ZIP Co de Phone Number [facility] [address] [place] [phone] * Hepatitis C Antibody with Reflex to HCV, RNA, Quantitative, Real-Time PCR (03/20/2024 4:10 PM EDT) Hepatitis C Antibody Nonreactive Nonreactive [facility] Comment:Antibodies to HCV no t detected; does not exclude early acuteHCV infection. Blood Venous blood specimen / Unknown 03/20/2024 4:10 PM EDT 03/20/2024 6:08 PM EDT us Christophe Roldan MD LAB BLOOD ORDERABLES Final Result Performing Organization Address [facility]/ZIP Co de Phone Number [facility] [address] [place] [phone] * HIV-1/2 Antigen and Antibodies, Fourth Generation, with Reflexes (03/20/2024 4:10 PM EDT) HIV AB/AG Nonreactive Nonreactive [facility] Comment:HIV-1 p24 Ag and/or HIV-1/HIV-2 Ab not detected.A test result that is nonreactive does not exclude thepossibility of exposure to or infection with HIV-1 and/orHIV-2. Nonreactive results in this assay for individualswith prior exposure to HIV-1 and/or HIV-2 may be due toantigen and antibody levels that are below the limit ofdetection of this assay.The [employer] Alinity HIV Ag/Ab Combo assay result andsupplemental assay results should be interpreted inconjunction with the patient's clinical presentation,history and other laboratory results. If the results areinconsistent with clinical evidence, additional testing issuggested to confirm the result. Blood Venous blood specimen / Unknown 03/20/2024 4:10 PM EDT 03/20/2024 6:08 PM EDT us Christophe Roldan MD LAB BLOOD ORDERABLES Final Result Performing Organization Address City/State/[facility] Co de Phone Number [facility] [address] [place] [phone] * (ABNORMAL) Colonoscopy (11/16/2022) Anatomical Region Laterality Modality Endoscopy Narrative 11/16/[address] Rocky Munroe. Internal and extenal hemorrhoids. Colonoscopy in 10 years. Historical Provider ENDOSCOPY PROCEDURE ORDER HERBERT Final Result * Mammography Report 1 (02/28/2021 12:00 PM EDT) Anatomical Region Laterality Modality Breast Bilateral Mammography 02/28/2021 12:0 0 PM EDT Narrative 03/06/2021 8:35 AM EDT Refer to the Notes tab for result details [facility] Procedure: Mammography Report 1 Procedure Note Provider, MD Stephanie - 09/20/2022 Refer to the Notes tab for result details [facility] Procedure: Mammography Report 1 us Christophe Roldan MD IMG BI PROCEDURES Final Res ult from Last 3 Months or Most Recently Relevant to Health Maintenance Insurance [facility] C[facility] [place] [facility] (MEDICAID) Care Teams Carton Stamper Relationship Specialty Start Date End Date Christophe Roldan MD [address] [place] [phone] PCP - General Internal Medicine 10/02/20
--- OUTSIDE RECORDS SUMMARY | 2025-05-17 17:51 | XMS_ITS | Encounter Summary ---
Author Organization [employer] Address [address] [place] [address] [place] [address] Care Team Providers Care Regional Facilities Specialist Name Role Phone Christophe Roldan MD Primary Care Provider [phone] Encounter Details Date Type Department Care Team (Late st Contact Info) Description 03/23/2024 Orders Only [facility] [address] [place] [address] Provider, MD Stephanie Social History Tobacco Use Types Packs/Day Years [...] t he electric, gas, oil or water [employer] threatened to shut off services in your [...] Upcoming Encounters Date Type Department Care Team ([facility] st Contact Info) Description 06/14/2025 11:30 AM EST Office Visit [facility] [address] [place] [address] Christophe Roldan MD [address] [place] [address] documented as of this encounter Procedures Procedure Name Priority Date/Time Associated Diagnosis Comments HM COLONOSCOPY Routine 11/16/2022 3:43 PM EDT documented in this encounter Results * Hm Colonoscopy (11/16/2022 3:43 PM EDT) Historical Provider HEALTH MAINTENANCE Final Result documented in this encounter Visit Diagnoses Not on filedocumented in this encounter Additional Health Concerns Assessment Noted Time PHQ-9 Depression Total Score: 15 024 3:49 PM EDT documented as of this encounter Care Teams Regional Facilities Specialist Relationship Specialty Start Date End Date Christophe Roldan MD [address] [place] [address] PCP - General Internal Medicine 10/02/20 documented as of this encounter
--- OUTSIDE RECORDS SUMMARY | 2025-05-17 17:51 | XMS_ITS | Encounter Summary ---
Author Organization [employer] Address [address] [place] [address] Care Team Providers Care Acupuncture Physician Name Role Phone Christophe Roldan MD Primary Care Provider [phone] Encounter Details Date Type Department Care Team (Latest Contact Info) Description 01/22/2022 Abstract [facility] CONVERSIONS Dental, Provider, DDS Social History Tobacco Use Types Packs/Day Years Used Date Smoking Tobacco: Never Assessed Comments Unknown Sex and Gender Information Value Date Recorded Sex Assigned at Female 04/27/2022 10:26 AM EDT Legal Sex Female 10:26 AM EDT Gender Identity Female 04/27/2022 10:26 AM EDT Sexual Orientation Straight 04/27/2022 10 :26 AM EDT documented as of this encounter Plan of Treatment Upcoming Encounters Date Type Department Care Team (Late st Contact Info) Description 06/14/2025 11:30 AM EST Office Visit [facility] [address] [place] [address] Christophe Roldan MD [address] [place] [address] documented as of this encounter Visit Diagnoses Not on filedocumented in this encounter Care Teams Acupuncture Physician Relationship Specialty Start Date End Date Christophe Roldan MD [address] [place] [address] PCP - General Internal Medicine 10/02/20 documented as of this encounter
--- OUTSIDE RECORDS SUMMARY | 2025-05-17 17:51 | XMS_ITS | Encounter Summary ---
Author Organization [employer] Address [address] [place] [address] Care Team Providers Care Track Equipment Operator Name Role Phone Christophe Roldan MD Primary Care Provider [phone] Encounter Details Date Type Department Care Team (Latest Contact Info) Description 04/03/2019 Abstract [facility] CONVERSIONS Dental, Provider, DDS Social History Tobacco [...] Description 06/14/2025 11:30 AM EST Office Visit [facility] [address] [place] [address] Christophe Roldan MD [address] [place] [address] documented as of this encounter Visit Diagnoses Not on filedocumented in this encounter Care Teams Track Equipment Operator Relationship Specialty Start Date End Date Christophe Roldan MD [address] [place] [address] PCP - General Internal Medicine 10/02/20 documented as of this encounter
--- OUTSIDE RECORDS SUMMARY | 2025-05-17 17:51 | XMS_ITS | Encounter Summary ---
Author Organization [employer] Address [address] [place] [address] 7 [place] [address] Care Team Providers Care Parts Driver Name Role Phone Christophe Roldan MD Primary Care Provider [phone] Encounter Details Date Type Department Care Team ([facility] Contact Info) Description 05/17/2025 Telephone [facility] [address] [place], [place] [id number] Christophe Roldan MD [address] [place] [address] Social History Tobacco Use Types Packs/Day Years [...] [place] documented as of this encounter Plan of Treatment Upcoming Encounters Date Type Department Care Team (Late st Contact Info) Description 06/14/2025 11:30 AM EST Office Visit [facility] [address] [place] [address] Christophe Roldan MD [address] [place] [address] documented as of this encounter Visit Diagnoses Not on filedocumented in this encounter Additional Health Concerns Assessment Noted Time PHQ-9 Depression Total Score: 16 025 11:16 AM EST documented as of this encounter Care Teams Parts Driver Relationship Specialty Start Date End Date Christophe Roldan MD [address] [place] [address] PCP - General Internal Medicine 10/02/20 documented as of this encounter
--- OUTSIDE RECORDS SUMMARY | 2025-05-17 17:51 | XMS_ITS | Encounter Summary ---
Author Organization [employer] Address [address] [place] [address] Care Team Providers Care Hand Riveter Name Role Phone Christophe Roldan MD Primary Care Provider [phone] Encounter Details Date Type Department Care Team (Latest Contact Info) Description 09/30/2020 Abstract [facility] CONVERSIONS Dental, Provider, DDS Social History Tobacco [...] Description 06/14/2025 11:30 AM EST Office Visit [facility] [address] [place] [address] Christophe Roldan MD [address] [place] [address] documented as of this encounter Visit Diagnoses Not on filedocumented in this encounter Care Teams Hand Riveter Relationship Specialty Start Date End Date Christophe Roldan MD [address] [place] [address] PCP - General Internal Medicine 10/02/20 documented as of this encounter
--- OUTSIDE RECORDS SUMMARY | 2025-05-17 17:52 | XMS_ITS | Encounter Summary ---
Author Organization [employer] Address [address] [place] [address] [address] [place] [address] Care Team Providers Care Painter Name Role Phone Christophe Roldan MD Primary Care Provider [phone] Encounter Details Date Type Department Care Team (Latest Contact Info) Description 05/17/2025 Travel Social History Tobacco Use Types Packs/Day Years [...] your housing situation today? I have shayan héctor 05/17/[address] you li [...] Upcoming Encounters Date Type Department Care Team ([facility] st Contact Info) Description 06/14/2025 11:30 AM EST Office Visit [facility] [address] [place] [address] Christophe Roldan MD [address] [place] [address] documented as of this encounter Visit Diagnoses Not on filedocumented in this encounter Additional Health Concerns Assessment Noted Time PHQ-9 Depression Total Score: 16 025 11:16 AM EST documented as of this encounter Care Teams Painter Relationship Specialty Start Date End Date Christophe Roldan MD [address] [place] [address] PCP - General Internal Medicine 10/02/20 documented as of this encounter
== END 2025-05-17 11:32 | disposition home or self-care (01) ==
LOC: HO.CHCLDS 11:31
PROVIDERS: Visit Provider Internal Medicine
DX: Z00.00 Encounter for general adult medical examination without abnormal findings (principal); E66.3 Overweight; K64.8 Other hemorrhoids; E78.00 Pure hypercholesterolemia, unspecified
CPT/HCPCS: 36415; 80053; 80061; 84443; 85025